=== PATIENT | female | born 1950 | race Caucasian/White ===

== ENCOUNTER 2016-08-15 15:45 | Emergency (ER) | payer MEDICAID ==
[~2016-08-15] VITALS: Ht 157.5 cm; Wt 58.1 kg
[2016-08-15 15:57] VITALS: BP_SYST 136
[2016-08-15 17:26] VITALS: BP_SYST 136
[2016-08-15] MEDS ORDERED: KETOROLAC TROMETHAMINE 60 MG/2 ML VIAL IM ONE (17:30)
== END 2016-08-15 17:26 | disposition still patient (30) ==
LOC: SED 15:45
DX: M25.511 Pain in right shoulder (principal); M25.561 Pain in right knee
CPT/HCPCS: 96372; 99283; J1885